=== PATIENT | female | born 2005 | race Caucasian/White ===

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

== ENCOUNTER 2024-04-02 15:24 | Outpatient (CLI) | payer OTHER ==
[2024-04-02] MEDS: LACTATED RINGERS 500 ML IV SCH (16:00)
--- NOTE | 2024-04-02 16:58 | P.HPOB ---
History of Present Illness H&P Date: 04/02/24 Chief Complaint: 20-3/7 weeks, probable incompetent cervix The patient is a 19-year-old 1 para 0 who presented to the office today for routine visit with anatomic survey ultrasound at 20-3/7 weeks as established by last menstrual period and confirmed by 10-week ultrasound. At the time of ultrasound, the entire anatomic survey was within normal limits and growth was normal. The budget technician was unable to identify any measurable cervix and was concern for the possibility of incompetent cervix. I saw her for a visit thereafter and placed a speculum at which time the cervix appeared to be approximately 3 to 4 cm dilated with some thickness still present but membranes were clearly visible within the cervix though not bulging through. She was sent to labor and delivery where she was found to have rare contractions at best. She reports that she has had some increasing pelvic pressure without any increase in watery vaginal discharge over the last several days. She has no other signs or symptoms. She does have an undisclosed neurologic issue with her lower extremities which has not been diagnosed but does cause moderate weakness and fatigue from the waist down and sometimes requires her to use a walker. Otherwise to this point, her has been uncomplicated. Obstetrical history: 1 para 0 with current statistics listed in history of present illness. EDC of 08/17/2024 was established by last menstrual period and confirmed by 10-week ultrasound. Laboratory workup demonstrates a blood type of O+ with a negative antibody screen. Rubella status is immune. The remainder of the laboratory workup was within normal limits. Early Glucola was normal. No further laboratory workup has yet been performed. Gynecologic history: Unremarkable with no history of any infections to include STDs. Review of Systems Review of systems is confined to history of present illness. Past Medical History Past Medical History: Blood Disorder Additional Past Medical History / Comment(s): IRON DEFICIENCY ANEMIA. History of Any Multi-Drug Resistant Organisms: None Reported Past Surgical History: No Surgical Hx Reported Additional Past Surgical History / Comment(s): UPPER ENDOSCOPY Past Anesthesia/Blood Transfusion Reactions: No Reported Reaction Smoking Status: Never smoker Medications and Allergies Home Medications Medication Instructions Recorded Confirmed Type Ondansetron Odt [Zofran Odt] 4 mg PO Q8HR PRN #10 tab 12/31/23 04/02/24 Rx Allergies Allergy/AdvReac Type Severity Reaction Status Date / Time No Known Allergies Allergy Verified 04/02/24 15:37 Exam Intake and Output 04/02/24 04/02/24 04/02/24 06:59 14:59 22:59 Other: Weight 91.172 kg In general, this is a well-developed, well-nourished white female in no acute distress. Her heart has a regular rhythm and rate without murmur. Her lungs are clear to auscultation bilaterally in all swann. Her abdomen is gravid, fundal height at appropriate size for dates, nondistended, has normal active bowel sounds, is soft, nontender, and without any palpable masses aside from uterine fundus. Her extremities are without any cyanosis, clubbing, or edema and are nontender to palpation bilaterally. Pelvic examination demonstrates only a speculum examination which is as noted in history of present illness with moderately thick cervical body noted by speculum but membranes clearly seen within an open cervix, appears to be approximately 3 to 4 cm dilated. Assessment and Plan (1) 20 weeks gestation of Current Visit: Yes Status: Acute Code(s): Z3A.20 - 20 WEEKS GESTATION OF PRE GNANCY SNOMED Code(s): 13230396 (2) Premature cervical dilation in second trimester Current Visit: Yes Status: Acute Code(s): O34.32 - MATERNAL CARE FOR CERVICAL INCOMPETENCE, SECOND TRIMESTER SNOMED Code(s): 653792131 Plan: The patient has had an IV started. It does not appear that she is in active labor and does not require any toco lysis at this time. I have arranged for her to be transferred to [facility] in [place] for further evaluation for the possibility of a rescue cerclage or other options available for maintaining this in the face of possible and probable cervical incompetence. I have discussed the findings with the patient and her significant other at length. The patient has agreed to the transfer and the transfer has been accepted by the attending physician at [facility], Dr. Matt. Further evaluation and treatment will be carried out at their venue.
[2024-04-02 18:15] VITALS: BP 131/64; PULSE 85; RESP 16; TEMP 97
== END 2024-04-02 18:06 ==
LOC: FBPOP 15:24
PROVIDERS: ATTEND Obstetrics & Gynecology
DX: O34.32 Maternal care for cervical incompetence, second trimester (principal); Z3A.20 20 weeks gestation of pregnancy
CPT/HCPCS: 59025; 96360; G0463; 99213